=== PATIENT | male | born 1940 | race Caucasian/White ===

== ENCOUNTER 2020-06-28 13:33 | Emergency (ER) | payer OTHER, MEDICAID ==
[~2020-06-28] VITALS: Ht 177.8 cm; Wt 81.6 kg
[~2020-06-28 13:33] MED LIST: ASAMANEX INH; ASCO500C16 PO; CLOB15CR5 TP; CLOP75TA15 PO; DEXL60CA3 PO; DOCU50CA3 PO; ENDOCET PO; FEXO180T PO; FINA5TAB11 PO; FOLI1TAB16 PO; HYDROCORTISONE TOP; IBUP-45 PO; MAGN100T3 PO; NIAC1000 PO; NYST15CR2 TP; RAMI5CAP66 PO; ROSU5TAB PO; SENN-261 PO; TEST200V4 IM; UBID1CAP2 PO; [UNRECOGNIZED DRUG - CODE] EACHEYE
--- NOTE | 2020-06-28 14:10 | NUR ---
called pt per pt request.
[2020-06-28 14:24] LABS: BASOPHILS # (AUTO) 0.1 K/uL (0.0-8.0); BASOPHILS % (AUTO) 0.6 % (0.0-2.0); EOSINOPHILS # (AUTO) 0.4 K/uL (0.0-0.7); EOSINOPHILS % (AUTO) 4.4 % (0.0-7.0); HEMATOCRIT 32.3 % (36.7-47.1); HEMOGLOBIN 11.2 g/dL (12.5-16.3); LYMPHOCYTES # (AUTO) 1.6 K/uL (20.0-40.0); LYMPHOCYTES % (AUTO) 17.9 % (20.5-51.5); MEAN CORPUSCULAR HEMOGLOBIN 29.9 uug (23.8-33.4); MEAN CORPUSCULAR HGB CONC 35 g/dL (32.5-36.3); MEAN CORPUSCULAR VOLUME 86.6 fL (73.0-96.2); MONOCYTES # (AUTO) 0.5 K/uL (2.0-10.0); MONOCYTES % (AUTO) 5.4 % (0.0-11.0); NEUTROPHILS # (AUTO) 6.2 K/uL (1.8-8.9); NEUTROPHILS % (AUTO) 71.7 % (38.5-71.5); PLATELET COUNT (AUTO) 152 K/uL (152-348); RED BLOOD CELL COUNT(AUTO) 3.73 MIL/uL (4.06-5.63); WHITE BLOOD COUNT (AUTO) 8.7 K/uL (3.6-10.2)
[2020-06-28 14:29] LABS: CARBON DIOXIDE 26 mmol/L (21-32); CHLORIDE 106 mmol/L (98-107); CREATININE 1.1 mg/dL (0.6-1.3); GLUCOSE 148 mg/dL (74-106); POTASSIUM 4.1 mmol/L (3.5-5.1); UREA NITROGEN, BLOOD 17 mg/dL (7-18)
[2020-06-28 14:35] LABS: ALANINE AMINOTRANSFERASE 19 U/L (16-63); ALKALINE PHOSPHATASE 74 U/L (50-136); ASPARTATE AMINOTRANSFERASE 14 U/L (15-37); BILIRUBIN,DIRECT 0.1 mg/dL (0.0-0.2); BILIRUBIN,TOTAL 0.5 mg/dL (0.2-1.0); TOTAL PROTEIN, SERUM 6.9 g/dL (6.4-8.2)
[2020-06-28 14:37] LABS: ACETAMINOPHEN < 2.0 ug/mL (10-30); ETHANOL < 3 MG/DL (0-0)
--- NOTE | 2020-06-28 14:42 | NUR ---
called [facility], the ambulance pt came with, to transfer the pt back to [facility]. eta [id number].
[2020-06-28 15:35] VITALS: BP 133/78
--- NOTE | 2020-06-28 16:10 | NUR ---
Report given to EMT's for PT's transfer. Pt left ER in stable condition, all belongings sent w/ pt.
== END 2020-06-28 16:14 ==
LOC: ER 13:33
DX: F31.9 Bipolar disorder, unspecified (principal); R45.851 Suicidal ideations; F03.90 Unspecified dementia, unspecified severity, without behavioral disturbance, psychotic disturbance, mood disturbance, and anxiety; Z86.73 Personal history of transient ischemic attack (TIA), and cerebral infarction without residual deficits; J45.909 Unspecified asthma, uncomplicated; K21.9 Gastro-esophageal reflux disease without esophagitis; Z88.2 Allergy status to sulfonamides; Z88.8 Allergy status to other drugs, medicaments and biological substances; Z79.899 Other long term (current) drug therapy; Z20.828 Contact with and (suspected) exposure to other viral communicable diseases
CPT/HCPCS: 80048; 80076; 80299; 80320; 85025; 87426; 93005; 99285; U0003; 36415; A4663; G0480